=== PATIENT | female | born 1955 | race Caucasian/White ===

== ENCOUNTER 2018-03-19 08:08 | Day surgery (SDC) | payer OTHER ==
[~2018-03-19 08:08] MED LIST: Acetaminophen TAB* 325 MG PO PRN; Buffered Lidocaine 0.9% SYRIN* 5 ML/SYR SYRINGE INTRADERM ONE; Cyclopentolate 1% OPTH.SOL* 2 ML BTL ONE; Ketorolac 0.5% OPHTH (NF) 0.5 % 5 ML BTL ONE; Lidocaine 1%* 5 ML VIAL ONE; Neomycin/Polymy/Dex OPHTH.OIN* 3.5 GM ONE; Phenylephrine 2.5% OPTH.SOL* 2 ML BTL ONE; Povidone Iodine 5% OPTH* 30 ML BTL ONE; Tetracaine 0.5% OPTH.SOL 4 ML* 1 DROP BTL ONE; Tropicamide 1% OPTH.SOL* BTL ONE; acetaZOLAMIDE TAB* 250 MG ONE
[2018-03-19] MEDS ORDERED: Midazolam* 1 MG/ML 5 ML VIAL (5 MG) ONE (09:16)
[2018-03-19 10:33] VITALS: BP 118/78
--- NOTE | 2018-03-19 14:42 | OP ---
DATE OF OPERATION: 03/19/18 [facility] DATE OF : 59 SURGEON: Jonathan Frias MD ANESTHESIA: Monitored anesthesia care. PREOPERATIVE DIAGNOSIS: Cataract, right eye. POSTOPERATIVE DIAGNOSIS: Cataract, right eye. OPERATIVE PROCEDURE: Extracapsular cataract extraction of the right eye with intraocular lens implant. IMPLANT: SN60WF 19.0 diopter lens to the right eye. COMPLICATIONS: None. DESCRIPTION OF PROCEDURE: The patient was given phenylephrine 2.5 % and cyclopentolate 1% eye drops to the operative eye in the preoperative area. The patient was taken to the operating room where a time-out was taken to identify the correct patient, site, and side of surgery. The patient's right eye was prepped and draped in the usual sterile fashion with 5% Betadine. A second time -out was taken to verify the correct patient, side, and site of surgery, as well as the correct lens implant. A lid speculum was placed to the right eye. A 1-mm paracentesis blade was used to make a clear corneal incision. Preservative-free 1% lidocaine was injected into the anterior chamber. DisCoVisc was then injected into the anterior chamber. A 2.75 mm keratome blade was used to make a triplanar incision. A cystotome initiated a capsulorrhexis, which was completed with Utrata forceps in a continuous and curvilinear manner. Hydrodissection of the lens was performed with BSS on a cannula. The lens could be spun in a capsular bag. The phacoemulsification handpiece was used with a toaoeb-cco-skuwfrw technique to remove the nucleus. The I/A handpiece then removed the residual cortical lens material. DisCoVisc was injected to inflate the capsular bag. The planned SN60WF 19.0 diopter lens was injected into the capsular bag. The residual DisCoVisc was removed from the eye with the I/A handpiece. The corneal incisions were hydrated and no leaks occurred at physiologic pressure around 20 mmHg per palpation. The lid speculum was removed and drapes were removed. Maxitrol ointment was placed to the surface of the operative eye. An adhesive patch and shield was then placed on the operative eye. The patient was taken to the postoperative area in stable condition. [id number]/[facility] #: [id number] [facility]
== END 2018-03-19 10:37 | disposition home or self-care (01) ==
LOC: OREAST 08:08
PROVIDERS: ATTEND Student in an Organized Health Care Education/Training Program
DX: H25.811 Combined forms of age-related cataract, right eye (principal); H43.813 Vitreous degeneration, bilateral; F41.8 Other specified anxiety disorders; D56.9 Thalassemia, unspecified; Z90.5 Acquired absence of kidney
CPT/HCPCS: A9270-GY; J2250; V2632

== ENCOUNTER 2018-04-04 07:51 | Day surgery (SDC) | payer OTHER ==
[2018-04-04] MEDS ORDERED: Midazolam* 1 MG/ML 2 ML VIAL (2 MG) ONE (08:19)
[2018-04-04] MEDS ORDERED: Ondansetron INJ* 2 MG/ML VIAL ONE (09:11)
[2018-04-04 09:48] VITALS: BP 131/80
--- NOTE | 2018-04-11 09:18 | OP ---
DATE OF OPERATION: 04/04/18 - [facility] DATE OF : 59 SURGEON: Jonathan Frias MD ANESTHESIA: Monitored anesthesia care. PREOPERATIVE DIAGNOSIS: Cataract, left eye. POSTOPERATIVE DIAGNOSIS: Cataract, left eye. OPERATIVE PROCEDURE: Extracapsular cataract extraction of the left eye with intraocular lens implant. IMPLANT: SN60WF 19.0 diopter lens to the left eye. COMPLICATIONS: None. DESCRIPTION OF PROCEDURE: The patient was given phenylephrine 2.5 % and cyclopentolate 1% eye drops to the operative eye in the preoperative area. The patient was taken to the operating room where a time-out was taken to identify the correct patient, site, and side of surgery. The patient's left eye was prepped and draped in the usual sterile fashion with 5% Betadine. A second time- out was taken to verify the correct patient, side, and site of surgery, as well as the correct lens implant. A lid speculum was placed to the left eye. A 1mm paracentesis blade was used to make a clear corneal incision. Preservative-free 1% lidocaine was injected into the anterior chamber. DisCoVisc was then injected into the anterior chamber. A 2.75 mm keratome blade was used to make a triplanar incision. A cystotome initiated a capsulorrhexis, which was completed with Utrata forceps in a continuous and curvilinear manner. Hydrodissection of the lens was performed with BSS on a cannula. The lens could be spun in a capsular bag. The phacoemulsification handpiece was used with a divide-and- conquer technique to remove the nucleus. The I/A handpiece then removed the residual cortical lens material. DisCoVisc was injected to inflate the capsular bag. The planned SN60WF 19.0 diopter lens was injected into the capsular bag. The residual DisCoVisc was removed from the eye with the I/A handpiece. The corneal incisions were hydrated and no leaks occurred at physiologic pressure around 20 mmHg per palpation. The lid speculum was removed and drapes were removed. Maxitrol ointment was placed to the surface of the operative eye. An adhesive patch and shield was then placed on the operative eye. The patient was taken to the postoperative area in stable condition. [id number]/[facility] #: [id number] [facility]
== END 2018-04-04 09:54 | disposition home or self-care (01) ==
LOC: OREAST 07:51
PROVIDERS: ATTEND Student in an Organized Health Care Education/Training Program
DX: H25.12 Age-related nuclear cataract, left eye (principal); H43.813 Vitreous degeneration, bilateral; Z72.0 Tobacco use; F41.8 Other specified anxiety disorders; D56.9 Thalassemia, unspecified; Z52.4 Kidney donor
CPT/HCPCS: A9270-GY; J2250; J2405; V2632

== ENCOUNTER 2019-03-11 07:40 | Observation (INO) | payer BC ==
--- NOTE | 2019-03-11 08:11 | ED ---
Shortness of Breath - HPI Summary HPI Summary: Patient is a 63 y/o F w/ Hx of bronchitis who presents to [facility] via EMS with chief complaint of SOB. Associated Sx include fever, productive cough, chest congestion and body aches. She states that Sx initially onset 03/06/2019. Patient describes initial Sx as a "little cold". She notes that her grandson recently started school and has had cold Sx as well. Patient states that Sx worsened and she has been feeling like "roadkill". She states that around 0500 this morning, 03/11/19, she had difficulty breathing after walking 15-18 feet. Patient has been taking a friend's nebulizer with minimal relief. 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 On arrival, she was 94% o2 on 5 L NC. She states that she is on Wellbutrin and is a former smoker. She endorses occasional alcohol consumption but denies recreational drug usage. Patient does not report any chills, erythema of eyes, sore throat, CP, abdominal pain, N/V, dysuria, hematuria, edema, rash, and dizziness. On anesthesiologist assistant certified, nothing is noted to aggravate Sx, o2 is noted to alleviate Sx. Home medications and allergies are reviewed. - History of Current Complaint Chief Complaint: EDRespiratoryDistress Time Seen by Provider: 03/11/19 07:51 Hx Obtained From: Patient, EMS Onset/Duration: Lasting Days, Still Present, Worse Since Dyspnea At: Exertion Alleviating Factors: EMS Tx, Oxygen Associated Signs & Symptoms: Cough (Productive), Fever - Allergy/Home Medications Allergies/Adverse Reactions: Allergies Allergy/AdvReac Type Severity Reaction Status Date / Time milly Allergy Severe RASH, HIVES Verified 02/07/19 14:12 PMH/Surg Hx/FS Hx/Imm Hx Endocrine/Hematology History: Reports: Hx Anemia - THALASSEMIA Denies: Hx Bone Marrow Disease, Hx Sickle Cell Disease Cardiovascular History: Denies: Hx Hypertension GI History: Denies: Hx Gastroesophageal Reflux Disease History: Reports: Other Problems/Disorders - LEFT NEPHRECTOMY FOR KIDNEY DONATION -- 1995 Musculoskeletal History: Reports: Hx Arthritis - OSTEOARTHRITIS Sensory History: Reports: Hx Cataracts - BILATERAL, Hx Contacts or Glasses - GLASSES Denies: Hx Hearing Aid Opthamlomology History: Reports: Hx Cataracts - BILATERAL, Hx Contacts or Glasses - GLASSES - Cancer History Hx Chemotherapy: No Hx Radiation Therapy: No - Surgical History Surgery Procedure, Year, and Place: 1995 LEFT NEPHRECTOMY, [place]. 1977 LEFT KNEE RECONSTRUCTION, [facility] [place]. 1985 RIGHT ANKLE COMPOUND FRACTURE SURGICAL REPAIR, [facility] [place]. 1979 CSECTION, [facility] [place]. 2002 HYSTERECTOMY WITH BILATERAL S & O, [place]. 2018 COLONOSCOPY, [facility] [place] Hx Anesthesia Reactions: Yes - VIOLENT N&V WITH FIRST FEW SURGERIES Infectious Disease History: No Infectious Disease History: Denies: Traveled Outside the [place] in Last 30 Days - Family History Known Family History: Positive: Cardiac Disease - Social History Alcohol Use: Rare Hx Substance Use: No Substance Use Type: Reports: None Hx Tobacco Use: Yes Smoking Status (MU): Heavy Every Day Tobacco Smoker Type: Cigarettes Amount Used/How Often: 1/2 PPD FOR 30 YEARS Have You Smoked in the Last Year: Yes Review of Systems Positive: Fever. Negative: Chills Negative: Erythema Negative: Sore Throat Negative: Chest Pain Positive: Shortness Of Breath, Cough Negative: Abdominal Pain, Vomiting, Nausea Negative: dysuria, hematuria Positive: Myalgia - body aches . Negative: Edema Negative: Rash Neurological: Other - negative - dizziness All Other Systems Reviewed And Are Negative: Yes Physical Exam - Summary Physical Exam Summary: Constitutional: Well-developed, Well-nourished, Alert. (-) Distressed Skin: Warm, Dry HENT: Normocephalic; Atraumatic Eyes: Conjunctiva normal Neck: Musculoskeletal ROM normal neck. (-) JVD, (-) Stridor, (-) Tracheal deviation Cardio: Rhythm regular, rate normal, Heart sounds normal; Intact distal pulses; The pedal pulses are 2+ and symmetric. Radial pulses are 2+ and symmetric. (-) Murmur Pulmonary/Chest wall: Inspiratory and Expiratory Wheezes Noted. Effort normal. ( -) Respiratory distress, (-) Rales Abd: Soft, (-) tenderness, (-) Distension, (-) Guarding, (-) Rebound Musculoskeletal: (-) Edema Lymph: (-) Cervical adenopathy Neuro: Alert, Oriented x3 Psych: Mood and affect Normal Triage Information Reviewed: Yes Vital Signs On Initial Exam: Initial Vitals Temp Pulse Resp BP Pulse Ox 100.7 F 90 20 129/74 94 03/11/19 07:49 03/11/19 07:49 03/11/19 07:49 03/11/19 07:49 03/11/19 07:49 Vital Signs Reviewed: Yes Diagnostics - Vital Signs Vital Signs Temp Pulse Resp BP Pulse Ox 03/11/19 07:58 96 03/11/19 07:49 100.7 F 93 16 129/74 94 - Laboratory Result Diagrams: 03/11/19 08:18 03/11/19 08:18 Lab Statement: Any lab studies that have been ordered have been reviewed, and results considered in the medical decision making process. - Radiology CXR Radiology Interpretation Completed By: Radiologist Summary of Radiographic Findings: IMPRESSION: HYPERINFLATION. NO ACTIVE CARDIOPULMONARY DISEASE. THIS REPORT WAS REVIEWED BY DR. RESENDIZ. - EKG 0830 Cardiac Rate: NL - rate of 88 BPM EKG Rhythm: Sinus Rhythm Summary of EKG Findings: EKG showed NSR with rate of 88 BPM, no STEMI. EKG has been reviewed and interpreted by ED physician. Re-Evaluation - Re-Evaluation First Eval Re-Evaluation Time: 09:38 Comment: When going from [facility] [place], patient was 88% o2 sat on 5LPM. Status changed to clinical concern. Course/Dx - Course Course Of Treatment: Patient is a 63 y/o F w/ Hx of bronchitis who presents to [facility] via EMS with chief complaint of SOB. Associated Sx include fever, productive cough, chest congestion and body aches. She states that Sx initially onset 03/06/2019. Patient describes initial Sx as a "little cold". Patient states that Sx worsened. She states that around 0500 this morning, 03/11/19, she had difficulty breathing after walking 15-18 feet. Patient has been taking a friend's nebulizer with minimal relief. 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 On physical exam, Inspiratory and Expiratory Wheezes Noted. EKG showed NSR with rate of 88 BPM, no STEMI. CXR IMPRESSION: HYPERINFLATION. NO ACTIVE CARDIOPULMONARY DISEASE. Bloodwork was obtained. Abnormal values showed WBC 19.5, absolute neuts 16.6, absolute monos 1.6, total protein 6.1. Influenza A and B tests were negative. During ED course, patient received decadron 8 mg IV, duoneb, and Tylenol 975 mg PO. 937 - When going from [facility], patient was 88% o2 sat on 5LPM. Status changed to clinical concern. Patient was given Zithromax 500 mg PO, another duoneb. Patients case was discussed with Dr. Menjivar, Dr. Menjivar accepts for admission. Patient started on fluids and 1 gm Ceftriaxone sodium in sodium chloride, 50 mls @ 100 mls/hr IVPB. - Diagnoses Provider Diagnoses: COPD exacerbation, Hypoxia - Physician Notifications Discussed Care of Patient With: Shantal Menjivar - Patients case was discussed with Dr. Menjivar, Dr. Menjivar accepts for admission Time Discussed With Above Provider: 11:02 - Critical Care Time Critical Care Time: 30-74 min - 35 minutes CCT Discharge ED - Sign-Out/Discharge Documenting (check all that apply): Patient Departure - admit - Discharge Plan Condition: Fair Disposition: ADMITTED TO [facility] Referrals: Miguel Angel GOMEZ,Leonel Kan [Primary Care Provider] - - Attestation Statements Document Initiated by Scribe: Yes Documenting Scribe: SHADE QUINTANA Provider For Whom Scribe is Documenting (Include Credential): JOMAR RESENDIZ MD Scribe Attestation: SHADE Rowley, scribed for JOMAR RESENDIZ MD on 03/11/19 at 1227. Status of Scribe Document: Ready
[2019-03-11] MEDS ORDERED: Dexamethasone IV* 4 MG/ML 1 ML (4 MG) IV SLOW PU ONE (08:12)
[2019-03-11] MEDS ORDERED: Albuterol/Ipratropium NEB.SOL* Albuterol 2.5 MG/Ipratropium 0.5 MG 3 ML INH ONE ×2 (08:12→09:37)
[2019-03-11] MEDS ORDERED: Acetaminophen TAB* 325 MG PO ONE (08:13)
[2019-03-11 08:32] LABS: Hematocrit 40 % (35-47); Hemoglobin 13.6 g/dL (12.0-16.0); Mean Corpuscular HGB Conc 34 g/dL (31-36); Mean Corpuscular Hemoglobin 30 pg (27-31); Mean Corpuscular Volume 89 fL (80-97); Mean Platelet Volume 10.2 fL (7.4-10.4); Platelet Count 179 10^3/uL (150-450); Red Blood Count 4.51 10^6 /uL (3.70-4.87); Red Cell Distribution Width 14 % (10-15); White Blood Count 19.5 10^3/uL (3.5-10.8)
[2019-03-11 08:42] LABS: Activated Partial Thrombo Time 27.7 seconds (26.0-38.0); INR 1.09 (0.82-1.09)
[2019-03-11 08:43] LABS: Albumin 3.7 g/dL (3.2-5.2); Albumin/Globulin Ratio 1.5 (1-3); BUN/Creatinine Ratio 18.3 (8-20); Calcium 9.1 mg/dL (8.6-10.3); EGFR African American 85.8 (>60); EGFR Non-African American 70.9 (>60); Globulin 2.4 g/dL (2-4); Potassium 3.7 mmol/L (3.5-5.0); Total Bilirubin 0.5 mg/dL (0.2-1.0); Total Protein 6.1 g/dL (6.4-8.9)
[2019-03-11 08:45] LABS: Troponin I 0.01 ng/mL (<0.04)
[2019-03-11 09:05] LABS: Influenza A Molecular NEGATIVE (Negative); Influenza B Molecular NEGATIVE (Negative)
[2019-03-11 09:15] LABS: ABS Lymphocytes 1.3 10^3/ul (1.0-4.8); ABS Monocytes 1.6 10^3/ul (0-0.8); ABS Neutrophils 16.6 10^3/ul (1.5-7.7); Eosinophil % 0.1 %; Lymphocyte % 6.5 %
[2019-03-11] MEDS ORDERED: Azithromycin TAB* 250 MG PO ONE (09:24)
[2019-03-11] MEDS ORDERED: NS 0.9% 1000 ML** 1,000 ML IV ONE ×2 (10:49→10:54)
[2019-03-11] MEDS ORDERED: cefTRIAXone(*) 1 GM in NS 0.9% 50 ML* 50 ML IVPB ONE (10:49)
[2019-03-11 11:10] LABS: Urine Appearance Clear; Urine Bilirubin Negative (Negative); Urine Blood Negative (Negative); Urine Color Yellow; Urine Glucose Negative (Negative); Urine Ketones Trace (Negative); Urine Nitrite Negative (Negative); Urine Protein Negative (Negative); Urine Specific Gravity 1.009 (1.010-1.030); Urine Urobilinogen Negative (Negative)
[2019-03-11 12:27] LABS: C Reactive Protein 64.13 mg/L (<8.01)
[2019-03-11] MEDS ORDERED: methylPREDNISolone SOD 40 MG* 1 ML VIAL IV SCH (13:00)
[2019-03-11] MEDS ORDERED: Albuterol/Ipratropium NEB.SOL* Albuterol 2.5 MG/Ipratropium 0.5 MG 3 ML INH SCH (13:00)
[2019-03-11] MEDS: Enoxaparin(*) 40 MG/0.4 ML SYR SUBCUT SCH (15:21)
[2019-03-11] MEDS: NS 0.9% 1000 ML** 1,000 ML IV SCH (15:21)
[2019-03-11] MEDS: methylPREDNISolone SOD 40 MG* 1 ML VIAL IV SCH ×2 (15:21→21:30)
--- NOTE | 2019-03-11 15:36 | HP ---
CC: Dr. Michelle, [facility] * HISTORY AND PHYSICAL: DATE OF ADMISSION: 03/11/19 PROVIDER: Rosangela Mccoy NP PRIMARY CARE PROVIDER: Dr. Michelle at [facility]. ATTENDING PHYSICIAN WHILE IN THE HOSPITAL: Dr. Shantal Bowens * (dictated by Rosangela Mccoy NP). CHIEF COMPLAINT: 1. Shortness of breath. 2. Cough. 3. Fever. HISTORY OF PRESENT ILLNESS: Ms. Hoyos is a 63-year-old female with a past medical history significant for depression; history of kidney cancer, status post left nephrectomy, who presented to the emergency room with complaints of cough and congestion since 03/06/19 and progressively worsening shortness of breath. The patient reports that her breathing became worse over the weekend. She does report that she was using a friend's albuterol nebulizer and taking 30 mg of prednisone for the past 3 days with no significant improvement of her symptoms. She does report that the cough and congestion became progressively worse as well as the shortness of breath. She developed a fever on Monday. Due to these symptoms, the patient presented to the emergency room for further evaluation. She also reports that she has custody of her grandson, who is 7 years old, also has cough and congestion at this time. The patient does report fever. She also reports a 15- pound weight loss in the past 6 weeks, which she contributes to stress as she recently has gotten custody of a grandson from [place] and has been having difficulty setting up care for him as he does have a history of autism. Denies any chest pain or edema. She does report heaviness in her chest for the past 2 to 3 days, it hurts to take a deep breath and congestion. She reports a moist minimally productive cough with mccormick-green secretions. She denies any hemoptysis. She does report shortness of breath that is worse with exertion. Denies any nausea, vomiting, diarrhea or abdominal pain, hematuria or dysuria. Denies any focal weakness or sensory loss , visual complaints, dysphagia. She does complain of generalized joint and muscle aches. She denies any rashes, lesions, open sores, psychosis, or anxiety. While in the emergency room, the patient had routine lab work drawn. She was found to have leukocytosis with white count of 19.5, fever of 100.7, and O2 saturations of 94% on 5 L nasal cannula on arrival. EMS did report O2 saturations of 82% on room air at home and she was placed on CPAP prior to arrival by EMS. The patient was given dexamethasone, azithromycin, and ceftriaxone in the emergency room with some relief of her shortness of breath. The patient is currently on 5 L nasal cannula. She has a white count of 19, 000. Chest x-ray shows no acute cardiopulmonary process. The patient was febrile with a temperature of 100.7 on arrival. Due to her continued shortness of breath and requiring 5 L of oxygen, Hospital Medicine was asked to see and evaluate for admission. PAST MEDICAL HISTORY: Significant for depression; history of kidney cancer, status post left nephrectomy. PAST SURGICAL HISTORY: 1. Cataract surgery. 2. Left knee surgery. 3. Right ankle surgery. 4. . 5. Hysterectomy. 6. Tonsillectomy. 7. Left nephrectomy. Initially was a donor, but was found to have renal cell carcinoma. HOME MEDICATIONS: Include bupropion 150 mg p.o. daily. ALLERGIES: Allergy to MAX. Sensitivity to tramadol as it causes constipation. FAMILY HISTORY: Unknown as the patient was adopted. SOCIAL HISTORY: The patient smokes half a pack a day for the past 40 years. She does report smoking up to a pack a day in the past. Does report occasional alcohol use. No illicit drug use. Surrogate decision maker in the event she is unable to make her own decisions is her friend, Lexi Hines. She wishes to be a do not resuscitate. REVIEW OF SYSTEMS: A 14-point review of systems was completed. All pertinent positives were mentioned in the HPI with the exception the patient does complain of headache at this time. PHYSICAL EXAMINATION GENERAL: Ms. Hoyos is alert and oriented, resting on the stretcher in the emergency room. She has mild respiratory distress and a moist cough. She is well developed, well nourished. She does appear to be mildly weak. VITAL SIGNS: Blood pressure 112/65, heart rate 95, respirations are 15, O2 saturation 91% on 5 L nasal cannula, temperature was 100.6. HEENT: Head is atraumatic, normocephalic. Eyes: EOMs are intact. Sclerae anicteric and not pale. Oral mucosa appeared to be dry. NECK: Supple. LUNGS: Diminished with expiratory wheezes bilaterally, a few scattered rhonchi bilaterally. CARDIAC: S1, S2. Regular rate and rhythm. No murmurs, rubs, or gallops. ABDOMEN: Soft and nontender. Bowel sounds are present x4. EXTREMITIES: She is able to move all 4 extremities. There is no clubbing or cyanosis. There is no peripheral edema. Pedal pulses are +2 bilaterally. NEUROLOGIC: She is awake, alert, oriented x3. Speech is clear. Thought process is intact. There are no gross focal deficits. SKIN: Intact. DIAGNOSTIC STUDIES/LAB DATA: WBCs are 19.5, hemoglobin 13.6, hematocrit is 40 , platelet count 179. INR 1.09. Sodium 137, potassium 3.7, chloride 102, carbon dioxide was 25, anion gap was 10, BUN was 15, creatinine 0.82, lactic acid was 0.8 x2, calcium 9.1. ASTs were 13, ALTs were 11, alkaline phosphatase was 49. Troponin 0.01. C-reactive protein is 64.13. Urine was within normal limits with exception specific gravity was 1.009 and ketones were trace. Flu A and B were both negative. She had a chest x-ray, radiologist's impression: Hyperinflation. No active cardiopulmonary disease. She had an electrocardiogram, which showed sinus rhythm at a rate of 88. No ST or T-wave changes. and history of kidney cancer, status post left nephrectomy, who presented to the emergency room with complaints of progressively worsening shortness of breath since 03/06/19 with recent family contacts with upper respiratory tract infections. She was found to have acute hypoxic respiratory failure requiring 5 L nasal cannula of oxygen and leukocytosis, temperature and tachycardia meeting sepsis criteria. She will be admitted inpatient for: 1. Acute hypoxic respiratory failure. I suspect this is related to undiagnosed chronic obstructive pulmonary disease exacerbation with complications of bronchitis. The patient does have a congested cough. She does have inspiratory and expiratory wheezes in her lungs. She has been a smoker for the past 40 years' time at least a half a pack upwards to a pack a day at her peak. The patient has also had recent exposure to upper respiratory tract infection as well. Given her leukocytosis, fever of 100.7 and tachycardia , the patient does meet for sepsis criteria with suspected source of lung infection. She did receive azithromycin and ceftriaxone in the emergency room. I will continue her on azithromycin and ceftriaxone. I will start her on Solu -Medrol 40 mg IV q.[address] her on nebulizers [id number] q.4 hours for shortness of breath and wheezing per respiratory protocol and I will start her on Dulera inhaler. She can continue on O2 via nasal cannula at 5 L. We will titrate to maintain O2 saturations greater than 92%. I will get an ABG to get a baseline. I will also place her on normal saline at 75 cc per hour. 2. Depression. She should continue on bupropion as previously prescribed. 3. Leukocytosis. I suspect her leukocytosis could be related to her underlying respiratory infection. She does have an elevated CRP as well. We will continue her on azithromycin and ceftriaxone. We will repeat a CBC and BMP in the a.m. 4. FEN: She can have a regular diet. 5. Code status: The patient wishes to be a DNR. MOLST form will be completed and placed on the chart. 6. DVT prophylaxis: I will place her on Lovenox subcu. 7. Disposition: The patient will be placed inpatient on . TIME SPENT: Time spent on this admission was 60 minutes, greater than half that time was spent at the bedside reviewing events leading thus far to her hospitalization, performing physical exam, and reviewing my plan of care. I have discussed this with my attending, Dr. Shantal Bowens; she is in agreement with my plan. ROSANGELA MCCOY, TOM [id number]/[facility] #: [id number] [place]
[2019-03-11] MEDS: Albuterol/Ipratropium NEB.SOL* Albuterol 2.5 MG/Ipratropium 0.5 MG 3 ML INH SCH (19:23)
[2019-03-11] MEDS: Mometasone/Formoter 200/5 MDI INH SCH (19:24)
[2019-03-11] MEDS: Acetaminophen TAB* 325 MG PO PRN (21:30)
[2019-03-12] MEDS: Albuterol/Ipratropium NEB.SOL* Albuterol 2.5 MG/Ipratropium 0.5 MG 3 ML INH SCH ×4 (01:31→19:05)
[2019-03-12] MEDS: NS 0.9% 1000 ML** 1,000 ML IV SCH ×2 (05:01→21:24)
[2019-03-12] MEDS: methylPREDNISolone SOD 40 MG* 1 ML VIAL IV SCH ×3 (05:34→23:54)
[2019-03-12 06:44] LABS: ABS Lymphocytes 1.2 10^3/ul (1.0-4.8); ABS Monocytes 0.5 10^3/ul (0-0.8); Hematocrit 35 % (35-47); Hemoglobin 11.9 g/dL (12.0-16.0); Lymphocyte % 6.4 %; Mean Corpuscular HGB Conc 34 g/dL (31-36); Mean Corpuscular Hemoglobin 30 pg (27-31); Mean Corpuscular Volume 89 fL (80-97); Mean Platelet Volume 10.1 fL (7.4-10.4); Platelet Count 174 10^3/uL (150-450); Red Blood Count 3.91 10^6 /uL (3.70-4.87); Red Cell Distribution Width 14 % (10-15); White Blood Count 18.7 10^3/uL (3.5-10.8)
[2019-03-12 06:58] LABS: BUN/Creatinine Ratio 21.1 (8-20); Calcium 8.8 mg/dL (8.6-10.3); EGFR African American 101.3 (>60); EGFR Non-African American 83.7 (>60); Potassium 4.2 mmol/L (3.5-5.0)
--- NOTE | 2019-03-12 07:41 | PN ---
Subjective Date of Service: 03/12/19 Interval History: HOSPITALIST PROGRESS NOTE Patient seen and examined at bedside. Care reviewed and d/w Ericka Reed RN. She feels a little better today. Still feels "exhausted", but breathing is easier. Productive cough continues. She's under a lot of stress. 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 Family History: Unchanged from Admission Social History: Unchanged from Admission Past Medical History: Unchanged from Admission Objective Active Medications: Acetaminophen (Tylenol Tab*) 650 mg PO Q4H PRN PRN Reason: MILD PAIN or TEMP > 100.4 Last Admin: 03/11/19 21:30 Dose: 650 mg Albuterol/Ipratropium (Duoneb (Albuterol 2.5 Mg/Ipratropium 0.5 Mg)) 1 neb INH Q6H [facility] Last Admin: 03/12/19 01:31 Dose: 1 neb Bupropion HCl (Wellbutrin Xl *) 150 mg PO QAM KALEB Enoxaparin Sodium (Lovenox(*)) 40 mg SUBCUT Q24H [facility] Last Admin: 03/11/19 15:21 Dose: 40 mg Azithromycin (Zithromax 500 Mg/250 Ml) 500 mg in 250 mls @ 250 mls/hr IVPB Q24H [facility] Stop: 03/15/19 12:59 Sodium Chloride (Ns 0.9% 1000 Ml) 1,000 mls @ 75 mls/hr IV PER RATE [facility] Last Admin: 03/12/19 05:01 Dose: 75 mls/hr Ceftriaxone Sodium 1 gm/ (Sodium Chloride) 50 mls @ 100 mls/hr IVPB Q24H [facility] Methylprednisolone Sodium Succinate (Solu-Medrol 40 Mg) 40 mg IV Q8H [facility] Last Admin: 03/12/19 05:34 Dose: 40 mg Mometasone Furoate/Formoterol Fumar (Dulera 200/5 Mdi*) 2 puff INH BID [facility] Last Admin: 03/11/19 19:24 Dose: 2 puff Vital Signs - 8 hr 03/12/19 03/12/19 01:34 04:05 Temperature 98.2 F Pulse Rate 78 81 Respiratory 20 20 Rate Blood Pressure 130/78 (mmHg) O2 Sat by Pulse 95 95 Oximetry Oxygen Devices in Use Now: Nasal Cannula - 2 liters Appearance: Pleasant lady sitting up in bed in NAD Eyes: No Scleral Icterus Ears/Nose/Mouth/Throat: Mucous Membranes Moist Neck: Trachea Midline Respiratory: Symmetrical Chest Expansion and Respiratory Effort, - - BS+ bilaterally with diffuse rhonchi and wheezing Cardiovascular: RRR - Normal S1 and S2 Extremities: No Edema Neurological: Alert and Oriented x 3, NL Muscle Strength and Tone Result Diagrams: 03/12/19 06:24 03/12/19 06:24 Microbiology and Other Data: Microbiology 03/12/19 03:45 Gram Stain - Final Sputum Expectorated 03/11/19 10:55 Legionella Urinary Antigen - Final Urine Negative Legionella Antigen Streptococcus pneumoniae Ag Screen - Final Negative S. pneumo Antigen Assess/Plan/Problems-Billing Assessment: Mrs Olivares is a 63yo F with PMH of depression, renal CA s/p nephrectomy, tobacco abuse; who presented to ED with c/o fever, dyspnea, and cough, found to have COPD exacerbation secondary to bronchitis. - Patient Problems (1) Acute hypoxemic respiratory failure Comment: - Secondary to COPD exacerbation. (2) COPD exacerbation Comment: - Secondary to bronchitis. - Continue bronchodilators, steroids, Ceftriaxone and Zithromax. (3) Depression Comment: - Continue Bupropion. (4) Tobacco abuse Comment: - Patient advised about importance of tobacco cessation. States she was able to quit "cold turkey" in the past. - Continue nicotine supplementation PRN. (5) DVT prophylaxis Comment: - Lovenox. (6) Full code status Status and Disposition: Inpatient.
[2019-03-12] MEDS: BuPROPion XL* 150 MG TAB.XL PO SCH (07:47)
[2019-03-12] MEDS: Acetaminophen TAB* 325 MG PO PRN (07:47)
[2019-03-12] MEDS: Mometasone/Formoter 200/5 MDI INH SCH ×2 (07:57→19:05)
[2019-03-12] MEDS: Azithromycin 500 mg/250 ml NS 500 MG/250 ML BAG IVPB SCH (11:31)
[2019-03-12] MEDS: cefTRIAXone(*) 1 GM in NS 0.9% 50 ML* 50 ML IVPB SCH (13:19)
[2019-03-12] MEDS: Enoxaparin(*) 40 MG/0.4 ML SYR SUBCUT SCH (13:30)
[2019-03-12] MEDS ORDERED: Nicotine* 2MG (FRUIT FLAVOR) GUM PO PRN (15:27)
[2019-03-13] MEDS: Albuterol/Ipratropium NEB.SOL* Albuterol 2.5 MG/Ipratropium 0.5 MG 3 ML INH SCH ×4 (01:13→19:31)
[2019-03-13 06:25] LABS: ABS Lymphocytes 1.1 10^3/ul (1.0-4.8); ABS Monocytes 0.6 10^3/ul (0-0.8); ABS Neutrophils 17.7 10^3/ul (1.5-7.7); Hematocrit 36 % (35-47); Hemoglobin 11.5 g/dL (12.0-16.0); Lymphocyte % 5.5 %; Mean Corpuscular HGB Conc 32 g/dL (31-36); Mean Corpuscular Hemoglobin 29 pg (27-31); Mean Corpuscular Volume 90 fL (80-97); Platelet Count 205 10^3/uL (150-450); Red Blood Count 3.94 10^6 /uL (3.70-4.87); Red Cell Distribution Width 14 % (10-15); White Blood Count 19.4 10^3/uL (3.5-10.8)
[2019-03-13 06:47] LABS: C Reactive Protein 23.67 mg/L (<8.01); EGFR African American 106.4 (>60); Potassium 4.1 mmol/L (3.5-5.0)
[2019-03-13] MEDS: Acetaminophen TAB* 325 MG PO PRN ×2 (08:01→23:34)
[2019-03-13] MEDS: methylPREDNISolone SOD 40 MG* 1 ML VIAL IV SCH (08:02)
[2019-03-13] MEDS: Mometasone/Formoter 200/5 MDI INH SCH ×2 (08:26→19:31)
[2019-03-13] MEDS: BuPROPion XL* 150 MG TAB.XL PO SCH (09:20)
[2019-03-13] MEDS: cefTRIAXone(*) 1 GM in NS 0.9% 50 ML* 50 ML IVPB SCH (10:37)
[2019-03-13] MEDS: predniSONE TAB* 20 MG PO SCH (10:51)
[2019-03-13] MEDS: Azithromycin 500 mg/250 ml NS 500 MG/250 ML BAG IVPB SCH (12:40)
[2019-03-13] MEDS: Enoxaparin(*) 40 MG/0.4 ML SYR SUBCUT SCH (12:46)
--- NOTE | 2019-03-13 15:25 | PN ---
Subjective Date of Service: 03/13/19 Interval History: Patient is feeling persistently SOB, particularly with exertion. Patient feels very poorly. Patient feels as if her sputum is mobilizing and she is bale to cough it out. Patient denies F/C, N/V, abdominal pain, diarrhea, CP, dysuria, or other pain. Patient is very concerned about her ability to manage at home if discharged. Family History: Unchanged from Admission Social History: Unchanged from Admission Past Medical History: Unchanged from Admission Objective Active Medications: Acetaminophen (Tylenol Tab*) 650 mg PO Q4H PRN PRN Reason: MILD PAIN or TEMP > 100.4 Last Admin: 03/13/19 08:01 Dose: 650 mg Albuterol/Ipratropium (Duoneb (Albuterol 2.5 Mg/Ipratropium 0.5 Mg)) 1 neb INH Q6H [facility] Last Admin: 03/13/19 13:58 Dose: 1 neb Bupropion HCl (Wellbutrin Xl *) 150 mg PO QAM [facility] Last Admin: 03/13/19 09:20 Dose: 150 mg Enoxaparin Sodium (Lovenox(*)) 40 mg SUBCUT Q24H [facility] Last Admin: 03/13/19 12:46 Dose: 40 mg Azithromycin (Zithromax 500 Mg/250 Ml) 500 mg in 250 mls @ 250 mls/hr IVPB Q24H [facility] Stop: 03/15/19 12:59 Last Admin: 03/13/19 12:40 Dose: 250 mls/hr Ceftriaxone Sodium 1 gm/ (Sodium Chloride) 50 mls @ 100 mls/hr IVPB Q24H [facility] Last Admin: 03/13/19 10:37 Dose: 100 mls/hr Mometasone Furoate/Formoterol Fumar (Dulera 200/5 Mdi*) 2 puff INH BID [facility] Last Admin: 03/13/19 08:26 Dose: 2 puff Nicotine Polacrilex (Nicotine Gum*) 2 mg PO Q2H PRN PRN Reason: CRAVING Prednisone (Deltasone Tab*) 60 mg PO DAILY [facility] Last Admin: 03/13/19 10:51 Dose: 60 mg Vital Signs - 8 hr 03/13/19 03/13/19 03/13/19 08:00 08:57 11:30 Temperature 98.3 F 98.1 F Pulse Rate 72 90 79 Respiratory 24 15 22 Rate Blood Pressure 149/77 146/78 (mmHg) O2 Sat by Pulse 96 90 95 Oximetry 03/13/19 14:25 Temperature Pulse Rate 86 Respiratory 16 Rate Blood Pressure (mmHg) O2 Sat by Pulse 93 Oximetry Oxygen Devices in Use Now: Nasal Cannula Appearance: 63yo female who appears stated age and is sitting in the bed in NAD. Eyes: No Scleral Icterus, PERRLA Ears/Nose/Mouth/Throat: NL Teeth, Lips, Gums, Clear Oropharnyx, Mucous Membranes Moist Neck: NL Appearance and Movements; NL JVP, Trachea Midline Respiratory: Symmetrical Chest Expansion and Respiratory Effort, - - Wheezing and rhonchi throughout. Cardiovascular: NL Sounds; No Murmurs; No JVD, RRR, No Edema Abdominal: NL Sounds; No Tenderness; No Distention, No Hepatosplenomegaly Lymphatic: No Cervical Adenopathy Extremities: No Edema, No Clubbing, Cyanosis Skin: No Rash or Ulcers, No Nodules or Sclerosis Neurological: Alert and Oriented x 3, NL Sensation, NL Muscle Strength and Tone , - - CN II-XII intact. - Nutrition: Malnutrition Diagnosis/Plan Malnutrition Assessment by Registered Dietitian: Malnutrition Assessment Clinical Characteristics Acute,Moderate Malnutrition Assessment: - Significant weight loss of 12# (8.6%) x < 3mos. Criteria - Reduction in po intake </=75% for greater than 7 days. Malnutrition Assessment: Ensure Enlive (350 kcals, 20g pro) once daily Interventions Malnutrition Assessment: Goals 1. adequate intake to support hydration and lean body mass without add'l wt loss Result Diagrams: 03/13/19 05:57 03/13/19 05:57 Microbiology and Other Data: Microbiology 03/12/19 03:45 Gram Stain - Final Sputum Expectorated 03/11/19 10:55 Legionella Urinary Antigen - Final Urine Negative Legionella Antigen Streptococcus pneumoniae Ag Screen - Final Negative S. pneumo Antigen Assess/Plan/Problems-Billing Assessment: Mrs Olivares is a 63yo F with PMH of depression, renal CA s/p nephrectomy, tobacco abuse; who presented to ED with c/o fever, dyspnea, and cough, found to have COPD exacerbation secondary to bronchitis. - Patient Problems (1) Acute hypoxemic respiratory failure Current Visit: Yes Status: Acute Code(s): J96.01 - ACUTE RESPIRATORY FAILURE WITH HYPOXIA SNOMED Code(s): 124373526 Comment: - Secondary to COPD exacerbation. (2) COPD exacerbation Current Visit: Yes Status: Acute Code(s): J44.1 - CHRONIC OBSTRUCTIVE PULMONARY DISEASE W (ACUTE) EXACERBATION SNOMED Code(s): 119262718 Comment: - Secondary to bronchitis. - Possible Bacterial infection with CRP>60 - Continue bronchodilators, Ceftriaxone and Zithromax. - Taper steroids to 60mg prednisone daily. (3) Depression Current Visit: Yes Status: Acute Code(s): F32.9 - MAJOR DEPRESSIVE DISORDER , SINGLE EPISODE, UNSPECIFIED SNOMED Code(s): 23418618 Comment: - Continue Bupropion. (4) Tobacco abuse Current Visit: Yes Status: Acute Code(s): Z72.0 - TOBACCO USE SNOMED Code( s): 963363461 Comment: - Patient advised about importance of tobacco cessation. States she was able to quit "cold turkey" in the past. - Continue nicotine supplementation PRN. (5) DVT prophylaxis Current Visit: Yes Status: Acute Code(s): Z29.9 - ENCOUNTER FOR PROPHYLACTIC MEASURES, UNSPECIFIED SNOMED Code(s): 596091244 Comment: - Lovenox. (6) Full code status Current Visit: Yes Status: Acute Code(s): Z78.9 - OTHER SPECIFIED HEALTH STATUS SNOMED Code(s): 300282770 Status and Disposition: Inpatient. Still significantly symptomatic and limited in functional status.
[2019-03-14] MEDS: Albuterol/Ipratropium NEB.SOL* Albuterol 2.5 MG/Ipratropium 0.5 MG 3 ML INH SCH ×3 (01:51→13:55)
[2019-03-14 05:29] LABS: Hematocrit 36 % (35-47); Hemoglobin 11.7 g/dL (12.0-16.0); Mean Corpuscular HGB Conc 32 g/dL (31-36); Mean Corpuscular Hemoglobin 30 pg (27-31); Mean Corpuscular Volume 93 fL (80-97); Mean Platelet Volume 9.2 fL (7.4-10.4); Platelet Count 211 10^3/uL (150-450); Red Blood Count 3.91 10^6 /uL (3.70-4.87); Red Cell Distribution Width 14 % (10-15); White Blood Count 17.4 10^3/uL (3.5-10.8)
[2019-03-14 05:31] LABS: ABS Lymphocytes 3.2 10^3/ul (1.0-4.8); ABS Monocytes 1.5 10^3/ul (0-0.8); ABS Neutrophils 12.7 10^3/ul (1.5-7.7); Nucleated Red Blood Cells % 0.1
[2019-03-14 05:37] LABS: BUN/Creatinine Ratio 23.1 (8-20); Calcium 8.5 mg/dL (8.6-10.3); EGFR African American 90.9 (>60); EGFR Non-African American 75.1 (>60); Magnesium 1.9 mg/dL (1.9-2.7); Potassium 3.9 mmol/L (3.5-5.0)
[2019-03-14 06:02] LABS: Eosinophil % 0.1 %; Lymphocyte % 18.3 %
[2019-03-14] MEDS: Mometasone/Formoter 200/5 MDI INH SCH (07:33)
[2019-03-14] MEDS: predniSONE TAB* 20 MG PO SCH (08:12)
[2019-03-14] MEDS: BuPROPion XL* 150 MG TAB.XL PO SCH (08:12)
[2019-03-14] MEDS ORDERED: guaiFENesin 100 mg/5 ml LIQ unit dose cup PO PRN (09:51)
[2019-03-14] MEDS: Enoxaparin(*) 40 MG/0.4 ML SYR SUBCUT SCH (11:54)
[2019-03-14] MEDS: cefTRIAXone(*) 1 GM in NS 0.9% 50 ML* 50 ML IVPB SCH (11:54)
[2019-03-14] MEDS: Azithromycin 500 mg/250 ml NS 500 MG/250 ML BAG IVPB SCH (13:08)
[2019-03-14 21:00] VITALS: BP 139/75
--- NOTE | 2019-03-15 01:23 | DS ---
CC: Dr. Michelle, [facility] * DISCHARGE SUMMARY: DATE OF ADMISSION: 03/11/19 DATE OF DISCHARGE: 03/14/19 PRIMARY CARE PROVIDER: Dr. Michelle at [facility]. MY ATTENDING WHILE IN THE HOSPITAL: Dr. Holly Menendez.* (DICTATED BY DARIELA LOUISE) PRIMARY DISCHARGE DIAGNOSIS: Chronic obstructive pulmonary disease exacerbation , likely viral upper respiratory infection. SECONDARY DISCHARGE DIAGNOSES: 1. Depression. 2. History of kidney cancer, status post nephrectomy. STUDIES DONE WHILE IN THE HOSPITAL: Chest x-ray from 03/11/19 read as hyperinflation, no active cardiopulmonary disease. EKG shows normal sinus rhythm, no ST-segment elevation or depression, no hypertrophy, possible left atrial enlargement. No other significant abnormalities. MEDICATIONS AT DISCHARGE: 1. Bupropion 150 mg p.o. daily. 2. Tylenol 650 mg p.o. q.4 hours as needed. 3. Albuterol/ipratropium 1 nebulizer inhalation q.6 hours as needed. 4. Azithromycin 250 mg p.o. daily x2 doses. 5. Cefuroxime 500 mg p.o. b.i.d. x8 doses. 6. Guaifenesin 5 mL p.o. q.4 hours as needed. 7. Mometasone/formoterol 2 puffs inhalation b.i.d. 8. Prednisone 60 mg p.o. daily x4 days. New medications at discharge: 1. Prednisone. 2. Dulera. 3. Guaifenesin. 4. Cefuroxime. 5. Azithromycin. 6. DuoNeb. 7. Tylenol. Medications discontinued at discharge: None. HOSPITAL COURSE: This is a brief summary of the patient's presentation. For more details, please see the history and physical from Rosangela Mccoy NP, on 03/11/19. In brief, the patient is a 63-year-old female with past medical history significant for the above, who presented to the emergency department for 5 days of progressively worsening shortness of breath after being exposed to her grandson who had a cold. The patient had been taking prednisone 30 mg daily before she came in, although it had been prescribed to a friend. The patient, when she came into the emergency department, was found to be markedly hypoxic and elevated white blood cell count, was started on steroids, azithromycin, and ceftriaxone with DuoNeb and she felt somewhat better. The patient was admitted to the hospital, continued on steroids, antibiotics, and inhalers. The patient's oxygen was able to be weaned slowly. The patient was negative for flu A and B. The patient had persistent leukocytosis while in the hospital likely related to prednisone therapy. The patient met sepsis criteria on admission, but had no initial hypotension and this was not clinically significant. The patient was able to be weaned down to room air on the day of discharge and able to ambulate around the unit with saturations in the mid 90s on room air. The patient was a smoker at home and the importance of smoking cessation was stressed with her and she states she would like to quit cold turkey. The patient has felt somewhat poorly still on day of discharge, but felt stable and amenable for discharge to home on 03/14/19. PHYSICAL EXAMINATION ON THE DAY OF DISCHARGE: General: The patient is a 63- year- old female who appears stated age and sitting comfortably in the bed, in no acute distress. Vital Signs: At the time of discharge, temperature 97.8, pulse rate 80, oxygen saturation 94% on room air, blood pressure 144/78. HEENT : Head: Normocephalic, atraumatic. Sclerae anicteric. No conjunctival injection. Nasal mucosa moist. Oral mucosa moist. No pharyngeal erythema, discharge, or exudate. Neck: Supple, nontender. No lymphadenopathy. No carotid bruits auscultated. No JVD. Cardiac: Regular rate and rhythm. No clicks, murmurs, gallops, or rubs. Pulses are 2+ in the bilateral dorsalis pedis , posterior tibial, and radial areas. Respiratory: Clear to auscultation bilaterally. No wheezes, rales, or rhonchi. Good air exchange bilaterally. Abdomen: Soft, nontender, nondistended. Bowel sounds present and normoactive in all 4 quadrants. No hepatosplenomegaly. No abdominal bruits auscultated. No hepatojugular reflux. Genitourinary: No suprapubic or CVA tenderness. Skin : Clean, dry, and intact. No rash. Neuro: Cranial nerves II through XII intact. No focal deficits. Alert and oriented x3. Psychiatric: Pleasant and cooperative. DISCHARGE PLAN BY PROBLEM: 1. Probable COPD exacerbation, likely viral infection versus bacterial infection; acute hypoxic respiratory failure, resolved. 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 The patient was initially started on high-dose steroids and going to taper down to 60 mg daily which will be continued for 4 more days. The patient has been weaned off oxygen. The patient will be sent home with as needed inhalers. The patient should follow up with a rv repair technician or her primary care provider, should order outpatient pulmonary function test to formalize her diagnosis of COPD. The patient has been started on Dulera for cost effectiveness sake, which she was started on during the hospital. The patient should likely to start on a LAMA/LABA combination for her relatively mild COPD. The patient should follow up with her primary care provider in 1 week for general medical management and ensure continued improvement. 2. Depression. Continue the patient's Wellbutrin. DISPOSITION: Home. CONDITION: Stable. TIME SPENT: Approximately 60 minutes was spent on the discharge of this patient , 30 of which was spent [id number] with the patient obtaining history and physical and discussing treatment plan. DARIELA LOUISE [id number]/CPS #: [id number] MTDD
== END 2019-03-14 16:00 | disposition home or self-care (01) | DRG 140 ==
LOC: ED 07:40 → MED 12:45 → INTOOBSV 12:45 → MED 21:57
PROVIDERS: ADMIT Internal Medicine; ATTEND Internal Medicine
DX: J96.01 Acute respiratory failure with hypoxia (principal); J20.8 Acute bronchitis due to other specified organisms; F32.9 Major depressive disorder, single episode, unspecified; D56.9 Thalassemia, unspecified; M19.90 Unspecified osteoarthritis, unspecified site; H26.9 Unspecified cataract; J44.0 Chronic obstructive pulmonary disease with (acute) lower respiratory infection; F17.210 Nicotine dependence, cigarettes, uncomplicated; Z90.722 Acquired absence of ovaries, bilateral; Z90.710 Acquired absence of both cervix and uterus; Z90.5 Acquired absence of kidney; Z85.528 Personal history of other malignant neoplasm of kidney; Z82.49 Family history of ischemic heart disease and other diseases of the circulatory system; Z88.6 Allergy status to analgesic agent; Z91.018 Allergy to other foods; Z79.52 Long term (current) use of systemic steroids
CPT/HCPCS: 36415; 71045; 80048; 80053; 81003; 82803; 83605; 83735; 84484; 85025; 85610; 85730; 86140; 87040; 87070; 87205; 87899; 93005; 94640; 96365; 96367; 96372; 99284; A9270-GY; G0378; J0456; J0696; J1100; J1650; J2920; J7512

== ENCOUNTER 2023-07-13 05:39 | Observation (INO) ==
[2023-07-13 06:04] LABS: ABS Basophils 0.1 10^3/uL (0.0-0.1); ABS Eosinophils 0.1 10^3/uL (0.0-0.5); ABS Lymphocytes 2.4 10^3/uL (1.0-4.8); ABS Nucleated RBC 0.02 10^3/ul; Eosinophil % 0.8 %; Hematocrit 40.3 % (35-45); Hemoglobin 13.7 g/dL (11.5-14.3); Lymphocyte % 22.6 %; Mean Corpuscular Hgb Conc 33.9 g/dL (31-36); Mean Corpuscular Volume 85.3 fL (80-97); Mean Platelet Volume 9.4 fL (7.5-11.2); Nucleated Red Blood Cells % 0.2 %/100WBC (0.0-0.8); Platelet Count 154 10^3/uL (150-450); Red Blood Count 4.72 10^6/uL (3.63-4.92); Red Cell Distribution Width 14.1 % (12-17); White Blood Count 10.6 10^3/uL (3.8-11.8)
[2023-07-13 06:11] LABS: INR 1.06 (0.83-1.13)
[2023-07-13 06:52] LABS: Albumin 4.1 g/dL (3.2-5.2); Albumin/Globulin Ratio 1.5 (1-3); Calcium 9.2 mg/dL (8.6-10.3); Creatinine, Serum 0.95 mg/dL (0.51-0.95); Globulin 2.7 g/dL (2-4); Potassium 3.6 mmol/L (3.5-5.0); Total Bilirubin 0.9 mg/dL (0.2-1.0); Total Protein 6.8 g/dL (6.4-8.9); eGFR CKD-EPI 66.5 (>60)
[2023-07-13 07:29] LABS: High Sensitivity Troponin 1 Hr 66 pg/mL (<15)
[2023-07-13] MEDS: Iodixanol (CONTRAST) 320 MG/ML 100 ML SDV IV ONE (09:56)
[2023-07-13] MEDS: Heparin 5000 UNITS/ML 1 mL VIAL IV PRN (10:53)
[2023-07-13] MEDS: Heparin DRIP 25,000 UNITS BAG 25,000 UNITS/250 ML BAG IV SCH (11:00)
[2023-07-13 11:07] LABS: ABS Basophils 0.1 10^3/uL (0.0-0.1); ABS Lymphocytes 1.7 10^3/uL (1.0-4.8); ABS Monocytes 0.8 10^3/uL (0.0-0.9); Eosinophil % 0.3 %; Hematocrit 38.4 % (35-45); Hemoglobin 13.1 g/dL (11.5-14.3); Lymphocyte % 16.4 %; Mean Corpuscular Hemoglobin 29.1 pg (27-33); Mean Corpuscular Hgb Conc 34.1 g/dL (31-36); Mean Corpuscular Volume 85.2 fL (80-97); Mean Platelet Volume 9.6 fL (7.5-11.2); Platelet Count 151 10^3/uL (150-450); Red Blood Count 4.51 10^6/uL (3.63-4.92); White Blood Count 10.6 10^3/uL (3.8-11.8)
[2023-07-13] MEDS: Potassium Chlor 20 meq TAB.ER PO ONE (11:23)
[2023-07-13 11:26] LABS: Creatinine, Serum 0.8 mg/dL (0.51-0.95); eGFR CKD-EPI 81.7 (>60)
[2023-07-13] MEDS: Lidocaine PATCH 5% PATCH TRANSDERM SCH (14:39)
[2023-07-14 05:37] LABS: ABS Basophils 0.1 10^3/uL (0.0-0.1); ABS Eosinophils 0.2 10^3/uL (0.0-0.5); ABS Lymphocytes 2.8 10^3/uL (1.0-4.8); ABS Monocytes 0.7 10^3/uL (0.0-0.9); ABS Neutrophils 5.1 10^3/uL (1.5-7.6); Eosinophil % 1.8 %; Hematocrit 37.8 % (35-45); Hemoglobin 12.7 g/dL (11.5-14.3); Lymphocyte % 31.7 %; Mean Corpuscular Hemoglobin 28.9 pg (27-33); Mean Corpuscular Hgb Conc 33.6 g/dL (31-36); Mean Platelet Volume 9.7 fL (7.5-11.2); Platelet Count 175 10^3/uL (150-450); Red Blood Count 4.39 10^6/uL (3.63-4.92); Red Cell Distribution Width 13.9 % (12-17); White Blood Count 8.9 10^3/uL (3.8-11.8)
[2023-07-14] MEDS: Pneumococcal Vac 23-Polyvalent IM ONE (08:18)
[2023-07-14 10:36] VITALS: BP 127/80
== END 2023-07-14 13:07 | disposition home or self-care (01) ==
LOC: EDHOLD 05:39 → ED 05:39 → MEDTELE 14:55
PROVIDERS: ADMIT Student in an Organized Health Care Education/Training Program; ATTEND Internal Medicine